=== PATIENT | female | born 1985 | race Caucasian/White ===

== ENCOUNTER 2020-08-15 10:23 | Emergency (ER) | payer BC ==
[2020-08-15] MEDS ORDERED: Sodium Chloride 0.9% 1000 ML 1,000 ML IV STA (10:50)
[2020-08-15] MEDS ORDERED: Zofran 4 MG/2 ML VIAL IV ONE (10:50)
[2020-08-15] MEDS ORDERED: MORPHINE SULFATE 4 MG INJ ONE (10:57)
[2020-08-15] MEDS ORDERED: Zofran 4 MG/2 ML VIAL ONE (10:57)
[2020-08-15] MEDS ORDERED: Sodium Chloride 0.9% 1000 ML 1,000 ML ONE (10:57)
[2020-08-15] MEDS: MORPHINE SULFATE 4 MG INJ IV ONE ×2 (10:58→13:31)
[2020-08-15 11:17] LABS: Appearance CLOUDY (CLEAR); Bacteria RARE /HPF (NEGATIVE); Bilirubin NEGATIVE (NEGATIVE); Blood LARGE Ery/ul (0-5); Epithelial Cells MODERATE /HPF (FEW); Glucose NEGATIVE (NEGATIVE); Ketones MODERATE (NEGATIVE); Leukocyte Esterase NEGATIVE (NEGATIVE); Mucus MANY /HPF (NEGATIVE); Nitrite NEGATIVE (NEGATIVE); Protein,Urine Dip 100 (Negative); RBC 26-50 /HPF (0-2); Specific Gravity 1.031 (1.005-1.025); Urobilinogen 4 mg/dL (0-1)
[2020-08-15 11:17] LABS: ALBUMIN 4.8 g/dL (3.5-5.0); ALKALINE PHOSPHATASE 81 U/L (38-126); ANION GAP 18.2 MEQ/L (5-15); Absolute Neutrophil Ct (ANC) 12.16 (1.4-6.9); BASOPHIL % 0.3 % (0.0-0.4); BLOOD UREA NITROGEN 25 mg/dL (7-17); Basophil (Absolute #) 0.04 (0-0.4); CHLORIDE 101 mmol/L (98-107); Calcium 10.1 mg/dL (8.4-10.2); Carbon Dioxide 23 mmol/L (22-30); Creatinine 1 0.72 mg/dL (0.52-1.04); EST GLOMERULAR FILTRATION RATE > 60.0 ML/MIN; Eosinophil % 0.3 % (0.00-5.0); Eosinophil (Absolute #) 0.04 (0-0.5); Glucose 107 mg/dL (74-106); Hematocrit 47.6 % (35-47); Hemoglobin 15.5 gm/dl (12.0-16.0); LIPASE 89 U/L (23-300); Lymphocyte (Absolute #) 2.03 (1.0-4.6); Lymphocytes % 13.3 % (24.0-44.0); Mean Cell Volume 92.6 fl (78-100); Mean Corpuscular Hemoglobin 30.2 pg (26-32); Mean Corpuscular Hgb Concent. 32.6 g/dl (32-36); Mean Platelet Volume 11.6 fl (7.5-11.0); Monocyte (Absolute #) 0.98 (0.0-1.3); Monocytes % 6.4 % (0.0-12.0); Neutrophil % 79.7 % (36.0-66.0); Platelet Count 309 K/mm3 (150-450); Potassium 3.3 mmol/L (3.5-5.1); Red Blood Count 5.14 M/mm3 (4.1-5.4); Red Cell Distribution Width 14.5 % (11.5-14.0); SGOT/AST 22 U/L (14-36); SGPT/ALT 14 U/L (0-35); SODIUM 139 mmol/L (137-145); Total Protein 8.6 g/dL (6.3-8.2); White Blood Count 15.3 K/mm3 (4.0-10.5)
--- NOTE | 2020-08-15 12:33 | XRAY ---
Indication: Abdomen pain 3 days. Multiple contiguous axial images obtained through the abdomen and pelvis using 80 cc Isovue 370 contrast. Comparison: None Lung bases are clear. Heart is not enlarged. Noncontrasted stomach and bowel loops appear nonobstructed. Normal appendix. No free fluid/air. Both kidneys enhance and excrete with 5 mm right mid renal cortical cyst. Uterus demonstrates 7 mm fundal subserosal fibroid. A few tiny hepatic calcified granulomas. Remaining liver, gallbladder, pancreas, spleen, adrenal glands, kidneys, ureters, bladder, uterus, and aorta appear unremarkable. No pathologic retroperitoneal lymphadenopathy. Osseous structures intact with minimal degenerative changes throughout the spine. No ventral or inguinal hernias. Impression: 1. Tiny right renal cyst, tiny uterine fibroid, and hepatic calcified granulomas. 2. Remaining CT abdomen/pelvis with contrast exam is negative.
[2020-08-15] MEDS ORDERED: Norflex 60 MG/2 ML IM ONE (12:54)
[2020-08-15] MEDS ORDERED: TORAdol 30 mg Injection IM ONE (12:54)
--- NOTE | 2020-08-15 13:16 | ERPHSYRPT ---
- History of Present Illness Time Seen by Provider: 08/15/20 10:44 Historian: patient Exam Limitations: no limitations Patient Subjective Stated Complaint: abd pain, vomiting Triage Nursing Assessment: pt to ED c/o vomiting and abd pain onset Friday. pt was tested for COVID yesterday and recieved 2 shots, for nausea and an abx. reports no emesis last night but began again this am. rates 9/10 pain in upper abd. no alleviating factors or aggrivating factors. decreased appetite and decreased PO intake reported. Physician History: 35 years old female with history of anxiety depression, hypothyroidism presented in the ER with chief complaint of generalized abdominal pain with more in the upper abdomen associated with multiple episodes of nonprojectile, nonbilious vomiting with no hematemesis for the last 4 days. Patient reports she was evaluated yesterday at urgent care and her vomiting improved and this morning she started vomiting again. She is feeling fatigued tired dehydrated and is unable to hold much down. She was also tested for COVID-19 which is pending. Denies any fever chills cough or shortness of breath. Denies any known sick contact with COVID-19. Patient report her pain is mild to moderate, comes and goes without any known significant aggravating or relieving factors. Timing/Duration: day(s) (4), gradual onset, worse Activities at Onset: rest Quality: dullness, sharpness Abdominal Pain Onset Location: generalized abdomen Pain Radiation: no radiation Severity of Pain-Max: moderate Severity of Pain-Current: moderate Modifying Factors: Worsens With: movement, palpation, vomiting Associated Symptoms: fatigue, nausea, vomiting, weakness, No fever/chills Previous symptoms: no prior history Allergies/Adverse Reactions: No Known Drug Allergies Allergy (Verified 08/15/20 10:50) Home Medications: Alprazolam 1 mg [Xanax 1 mg] 1 mg PO TID 08/07/13 [History] Loratadine 10 mg [Claritin 10 mg] 10 mg PO DAILY 08/07/13 [History] Citalopram Hydrobromide [Celexa] 10 mg PO DAILY 08/15/20 [History] Levothyroxine Sodium [Synthroid] 25 mcg PO DAILY 08/15/20 [History] Hx Tetanus, Diphtheria Vaccination/Date Given: Yes Hx Influenza Vaccination/Date Given: Yes Hx Pneumococcal Vaccination/Date Given: No Immunizations Up to Date: Yes Travel Risk - International Travel Have you traveled outside of the country in past 3 weeks: No - Coronavirus Screening Are you exhibiting any of the following symptoms?: Yes Symptoms: Fever, Vomiting/Diarrhea Close contact with a COVID-19 positive Pt in past 14-21 Days: No - Review of Systems Constitutional: Fatigue, Weakness Eyes: No Symptoms Ears, Nose, & Throat: No Symptoms Respiratory: No Symptoms Cardiac: No Symptoms Abdominal/Gastrointestinal: Abdominal Pain, Nausea, Vomiting Genitourinary Symptoms: No Symptoms Musculoskeletal: No Symptoms Skin: No Symptoms Neurological: No Symptoms Psychological: No Symptoms Endocrine: No Symptoms Hematologic/Lymphatic: No Symptoms Immunological/Allergic: No Symptoms - Past Medical History Pertinent Past Medical History: Yes Neurological History: No Pertinent History Cardiac History: No Pertinent History Respiratory History: No Pertinent History Endocrine Medical History: No Pertinent History Musculoskeletal History: Fractures Other Medical History: R ankle fx in 7th grade - Past Surgical History Past Surgical History: Yes Musculoskeletal: Orthopedic Surgery Female Surgical History: Section, Tubal Ligation Other Surgical History: PILONIDAL CYST - HYSTEROSCOPIC WITH MIRENA IMPLANT. uterine ablasion - Social History Smoking Status: Former smoker Exposure to second hand smoke: No Drug Use: none Patient Lives Alone: No - Female History Hx Now: (unkn) - Nursing Vital Signs Nursing Vital Signs: Initial Vital Signs Temperature 98.2 F 08/15/20 10:29 Pulse Rate 45 L 08/15/20 10:29 Respiratory Rate 16 08/15/20 10:29 Blood Pressure 143/63 08/15/20 10:29 O2 Sat by Pulse Oximetry 99 08/15/20 10:29 Pain Scale Pain Intensity 0 - Physical Exam General Appearance: no apparent distress, alert Eye Exam: eyes nml inspection Ears, Nose, Throat Exam: normal ENT inspection, pharynx normal Neck Exam: normal inspection, supple, full range of motion Respiratory Exam: normal breath sounds, lungs clear Cardiovascular Exam: normal heart sounds, bradycardia Gastrointestinal/Abdomen Exam: soft, normal bowel sounds, tenderness (generalized) Back Exam: normal inspection, normal range of motion Extremity Exam: normal inspection, normal range of motion, pelvis stable Neurologic Exam: alert, oriented x 3, cooperative, dietetic aide II-XII nml as tested Skin Exam: normal color SpO2 Interpretation: normal SpO2: 100 O2 Delivery: Room Air - Course EKG Interpreted by Me: RATE ([id number]), Sinus Ricardo, NORMAL AXIS, NORMAL INTERVALS, NORMAL QRS Ordered Tests: Active Orders 24 hr Category Date Time Status NPO (ED) STAT Care 08/15/20 10:50 Completed ABDOMEN AND PELVIS W CONTRAST [CT] Stat Exams 08/15/20 10:51 Completed CBC W DIFF Stat Lab 08/15/20 11:00 Completed CMP Stat Lab 08/15/20 11:00 Completed CULTURE,URINE Stat Lab 08/15/20 10:54 Received HCG,QUALITATIVE URINE Stat Lab 08/15/20 10:54 Completed LIPASE Stat Lab 08/15/20 11:00 Completed TROPONIN Q3H Lab 08/15/20 11:15 Completed UA W/RFX UR CULTURE Stat Lab 08/15/20 10:54 Completed Medication Summary Discontinued Medications Generic Name Dose Route Start Last Admin Trade Name Freq PRN Reason Stop Dose Admin Sodium Chloride 1,000 mls @ 999 mls/hr 08/15/20 10:50 08/15/20 11:59 Sodium Chloride 0.9% 1000 Ml IV 08/15/20 11:50 Infused .Q1H1M STA Infusion Sodium Chloride Confirm 08/15/20 10:57 Sodium Chloride 0.9% 1000 Ml Administered 08/15/20 10:58 Dose 1,000 mls @ ud .ROUTE .STK-MED ONE Ketorolac Tromethamine 30 mg 08/15/20 12:54 08/15/20 12:56 Toradol 30 Mg Injection IM 08/15/20 12:55 Not Given STAT ONE Morphine Sulfate 4 mg 08/15/20 10:50 08/15/20 13:31 Morphine Sulfate 4 Mg Inj IV 08/15/20 10:51 Not Given STAT ONE Morphine Sulfate Confirm 08/15/20 10:57 Morphine Sulfate 4 Mg Inj Administered 08/15/20 10:58 Dose 4 mg .ROUTE .STK-MED ONE Ondansetron HCl 4 mg 08/15/20 10:50 08/15/20 10:58 Zofran 4 Mg/2 Ml Vial IV 08/15/20 10:51 4 mg STAT ONE Administration Ondansetron HCl Confirm 08/15/20 10:57 Zofran 4 Mg/2 Ml Vial Administered 08/15/20 10:58 Dose 4 mg .ROUTE .STK-MED ONE Orphenadrine Citrate 60 mg 08/15/20 12:54 08/15/20 12:56 Norflex 60 Mg/2 Ml IM 08/15/20 12:55 Not Given STAT ONE Lab/Rad Data: Laboratory Result Diagrams 08/15/20 11:00 08/15/20 11:00 Laboratory Results 08/15/20 08/15/20 08/15/20 Range/Units 11:15 11:00 11:00 WBC 15.3 H (4.0-10.5) K/mm3 RBC 5.14 (4.1-5.4) M/mm3 Hgb 15.5 (12.0-16.0) gm/dl Hct 47.6 H (35-47) % MCV 92.6 (78-100) fl MCH 30.2 (26-32) pg MCHC 32.6 (32-36) g/dl RDW 14.5 H (11.5-14.0) % Plt Count 309 (150-450) K/mm3 MPV 11.6 H (7.5-11.0) fl Gran % 79.7 H (36.0-66.0) % Eos # (Auto) 0.04 (0-0.5) Absolute Lymphs (auto) 2.03 (1.0-4.6) Absolute Monos (auto) 0.98 (0.0-1.3) Lymphocytes % 13.3 L (24.0-44.0) % Monocytes % 6.4 (0.0-12.0) % Eosinophils % 0.3 (0.00-5.0) % Basophils % 0.3 (0.0-0.4) % Absolute Granulocytes 12.16 H (1.4-6.9) Basophils # 0.04 (0-0.4) Sodium 139 (137-145) mmol/L Potassium 3.3 L (3.5-5.1) mmol/L Chloride 101 (98-107) mmol/L Carbon Dioxide 23 (22-30) mmol/L Anion Gap 18.2 H (5-15) MEQ/L BUN 25 H (7-17) mg/dL Creatinine 0.72 (0.52-1.04) mg/dL Estimated GFR > 60.0 ML/MIN Glucose 107 H (74-106) mg/dL Calcium 10.1 (8.4-10.2) mg/dL Total Bilirubin 0.80 (0.2-1.3) mg/dL AST 22 (14-36) U/L ALT 14 (0-35) U/L Alkaline Phosphatase 81 (38-126) U/L Troponin I < 0.012 (0.000-0.034) ng/mL Serum Total Protein 8.6 H (6.3-8.2) g/dL Albumin 4.8 (3.5-5.0) g/dL Lipase 89 (23-300) U/L Urine Color (YELLOW) Urine Appearance (CLEAR) Urine pH (5-6) Ur Specific [place] (1.005-1.025) Urine Protein (Negative) Urine Ketones (NEGATIVE) Urine Blood (0-5) Adriel/ul Urine Nitrite (NEGATIVE) Urine Bilirubin (NEGATIVE) Urine Urobilinogen (0-1) mg/dL Ur Leukocyte Esterase (NEGATIVE) Urine WBC (Auto) (0-5) /HPF Urine RBC (Auto) (0-2) /HPF U Epithel Cells (Auto) (FEW) /HPF Urine Bacteria (Auto) (NEGATIVE) /HPF Urine Mucus (Auto) (NEGATIVE) /HPF Urine Culture Reflexed (NO) Urine Glucose (NEGATIVE) mg/dL Urine HCG, Qual (Negative) Slides for Path Review YES 08/15/20 08/15/20 Range/Units 10:54 10:54 WBC (4.0-10.5) K/mm3 RBC (4.1-5.4) M/mm3 Hgb (12.0-16.0) gm/dl Hct (35-47) % MCV (78-100) fl MCH (26-32) pg MCHC (32-36) g/dl RDW (11.5-14.0) % Plt Count (150-450) K/mm3 MPV (7.5-11.0) fl Gran % (36.0-66.0) % Eos # (Auto) (0-0.5) Absolute Lymphs (auto) (1.0-4.6) Absolute Monos (auto) (0.0-1.3) Lymphocytes % (24.0-44.0) % Monocytes % (0.0-12.0) % Eosinophils % (0.00-5.0) % Basophils % (0.0-0.4) % Absolute Granulocytes (1.4-6.9) Basophils # (0-0.4) Sodium (137-145) mmol/L Potassium (3.5-5.1) mmol/L Chloride (98-107) mmol/L Carbon Dioxide (22-30) mmol/L Anion Gap (5-15) MEQ/L BUN (7-17) mg/dL Creatinine (0.52-1.04) mg/dL Estimated GFR ML/MIN Glucose (74-106) mg/dL Calcium (8.4-10.2) mg/dL Total Bilirubin (0.2-1.3) mg/dL AST (14-36) U/L ALT (0-35) U/L Alkaline Phosphatase (38-126) U/L Troponin I (0.000-0.034) ng/mL Serum Total Protein (6.3-8.2) g/dL Albumin (3.5-5.0) g/dL Lipase (23-300) U/L Urine Color WILLIE (YELLOW) Urine Appearance CLOUDY (CLEAR) Urine pH 6.0 (5-6) Ur Specific [place] 1.031 (1.005-1.025) Urine Protein 100 (Negative) Urine Ketones MODERATE (NEGATIVE) Urine Blood LARGE (0-5) Adriel/ul Urine Nitrite NEGATIVE (NEGATIVE) Urine Bilirubin NEGATIVE (NEGATIVE) Urine Urobilinogen 4 (0-1) mg/dL Ur Leukocyte Esterase NEGATIVE (NEGATIVE) Urine WBC (Auto) 6-10 (0-5) /HPF Urine RBC (Auto) 26-50 (0-2) /HPF U Epithel Cells (Auto) MODERATE (FEW) /HPF Urine Bacteria (Auto) RARE (NEGATIVE) /HPF Urine Mucus (Auto) MANY (NEGATIVE) /HPF Urine Culture Reflexed YES (NO) Urine Glucose NEGATIVE (NEGATIVE) mg/dL Urine HCG, Qual NEGATIVE (Negative) Slides for Path Review - Progress Progress: improved, pain not gone completely, re-examined Progress Note: 08/15/20 13:33 She is given fluid bolus and Zofran, patient refused to have any kind of pain medications. Work-up showed white count of 15 and chemistries finding consistent with dehydration but no YARIEL. I have obtained CT abdomen pelvis with contrast which did not show any finding suggesting cause of her symptoms but has some other chronic findings. On reevaluation her abdominal exam is soft with minimal generalized tenderness but no rebound or guarding. Patient is feeling better although her pain is not completely resolved. She is offered pain meds again but she refused. I would give her Zofran to go home as I believe her symptoms could be secondary to some viral etiology and supportive care with increase hydration. Discussed signs symptoms of worsening needing return to ER which she seems understanding. Counseled pt/family regarding: lab results, diagnosis, need for follow-up, rad results - Departure Departure Disposition: Home Clinical Impression: Dehydration Nausea & vomiting Qualifiers: Vomiting type: unspecified Vomiting Intractability: non-intractable Qualified Code(s): R11.2 - Nausea with vomiting, unspecified Abdominal pain Qualifiers: Abdominal location: generalized Qualified Code(s): R10.84 - Generalized abdominal pain Condition: Stable Critical Care Time: No Referrals: ALTHEA DAVENPORT [Primary Care Provider] - (1-2 days for re evaluation ) Instructions: Nausea and Vomiting, Adult (DC) Additional Instructions: Take Zofran as needed for nausea and vomiting. Drink plenty of fluids to keep yourself hydrated. Follow-up with primary care physician for reevaluation in 1 to 2 days. Return to ER for worsening vomiting, decreased oral intake, intractable abdominal pain or if develop fever chills. Take Tylenol as needed but no ibuprofen. Prescriptions: Ondansetron ODT 4 MG [Zofran Odt 4 mg] 4 mg PO Q6H PRN PRN #10 tab.rapdis PRN Reason: Vomiting
[2020-08-15 13:54] LABS: Slide Review 1 YES
[2020-08-15 14:13] VITALS: BP 126/86; PULSE 49
[2020-08-15 16:51] VITALS: O2SAT 100
== END 2020-08-15 14:32 | disposition home or self-care (01) ==
LOC: ED 10:23
DX: R10.84 Generalized abdominal pain (principal); R11.2 Nausea with vomiting, unspecified; E86.0 Dehydration; R53.83 Other fatigue; F41.9 Anxiety disorder, unspecified; E03.9 Hypothyroidism, unspecified; Z79.899 Other long term (current) drug therapy
CPT/HCPCS: 36000; 36415; 74177; 80053; 81001; 83690; 84484; 84703; 85025; 87077; 87086; 87186; 96360; 96374; 99284; J2270; J2405

== ENCOUNTER 2021-02-15 10:52 | Emergency (ER) | payer BC, OTHER ==
[2021-02-15 11:19] LABS: Absolute Neutrophil Ct (ANC) 5.29 (1.4-6.9); BASOPHIL % 0.5 % (0.0-0.4); Basophil (Absolute #) 0.04 (0-0.4); Eosinophil % 0.8 % (0.00-5.0); Eosinophil (Absolute #) 0.07 (0-0.5); Hematocrit 43.8 % (35-47); Mean Cell Volume 95.2 fl (78-100); Mean Corpuscular Hemoglobin 30.4 pg (26-32); Mean Platelet Volume 10.3 fl (7.5-11.0); Monocyte (Absolute #) 0.73 (0.0-1.3); Monocytes % 8.5 % (0.0-12.0); Neutrophil % 61.2 % (36.0-66.0); Platelet Count 298 K/mm3 (150-450); White Blood Count 8.6 K/mm3 (4.0-10.5)
[2021-02-15 11:29] LABS: ALKALINE PHOSPHATASE 45 U/L (38-126); ANION GAP 10.8 MEQ/L (5-15); BLOOD UREA NITROGEN 14 mg/dL (7-17); CHLORIDE 105 mmol/L (98-107); Calcium 9.5 mg/dL (8.4-10.2); Carbon Dioxide 27 mmol/L (22-30); Creatinine 1 0.83 mg/dL (0.52-1.04); EST GLOMERULAR FILTRATION RATE > 60.0 ML/MIN; Glucose 86 mg/dL (74-106); Potassium 4.5 mmol/L (3.5-5.1); SGOT/AST 20 U/L (14-36); SGPT/ALT 14 U/L (0-35); SODIUM 138 mmol/L (137-145); Total Protein 6.8 g/dL (6.3-8.2)
--- NOTE | 2021-02-15 12:22 | ERPHSYRPT ---
- History of Present Illness Time Seen by Provider: 02/15/21 11:05 Source: patient Exam Limitations: no limitations Patient Subjective Stated Complaint: Pt states "I was at work on friday and a kay of boxes fell and hit my left hip. It is really bruised and it hurts when I stand for a long time." Triage Nursing Assessment: Pt presented alert and oriented X 3, skin pwd Pt ambulates with an upright steady gait, able to speak in clear full sentences pt in no apaprent respriatory distress. Physician History: Patient is a 35-year-old white female who works at [employer] when she was working on Friday a large number of boxes fell striking her on the left side of her body and particularly in the left flank area. She continued to work that day but yesterday had increased pain and was sent home from work. Today she was sent by her employer in for evaluation. Occurred: days ago (4) Reason for Fall: fell from standing pos (She was hit in the left side by falling boxes knocking her to the ground) Injuries/Pain Location: abdomen Loss of Consciousness: no loss of consciousness Quality: throbbing Severity of Pain-Max: moderate Severity of Pain-Current: moderate Modifying Factors: Improves With: movement Associated Symptoms (Fall): abdominal pain, extremity injury (Left hip) Allergies/Adverse Reactions: No Known Drug Allergies Allergy (Verified 08/15/20 10:50) Home Medications: ALPRAZolam 1 MG [Xanax 1 mg] 1 mg PO TID 08/07/13 [History] Loratadine 10 mg [Claritin 10 mg] 10 mg PO DAILY 08/07/13 [History] Citalopram Hydrobromide [Celexa] 10 mg PO DAILY 08/15/20 [History] Levothyroxine Sodium [Synthroid] 25 mcg PO DAILY 08/15/20 [History] Hx Tetanus, Diphtheria Vaccination/Date Given: No Hx Influenza Vaccination/Date Given: Yes Hx Pneumococcal Vaccination/Date Given: No Immunizations Up to Date: Yes Travel Risk - International Travel Have you traveled outside of the country in past 3 weeks: No - Coronavirus Screening Are you exhibiting any of the following symptoms?: No Close contact with a COVID-19 positive Pt in past 14-21 Days: No - Vaccine Status Have you recieved a Covid-19 vaccination: Yes 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[employer] - Vaccination Dates Date of 2cond Vaccination (if applicable): 12/2020 - Review of Systems Constitutional: No Fever, No Chills Eyes: No Symptoms Ears, Nose, & Throat: No Symptoms Respiratory: No Cough, No Dyspnea Cardiac: No Chest Pain, No Edema, No Syncope Abdominal/Gastrointestinal: No Abdominal Pain, No Nausea, No Vomiting, No Diarrhea Genitourinary Symptoms: No Dysuria Musculoskeletal: No Back Pain, No Neck Pain Skin: No Rash Neurological: No Dizziness, No Focal Weakness, No Sensory Changes Psychological: No Symptoms Endocrine: No Symptoms All Other Systems: Reviewed and Negative - Past Medical History Pertinent Past Medical History: Yes Neurological History: No Pertinent History Cardiac History: No Pertinent History Respiratory History: No Pertinent History Endocrine Medical History: Hypothyroidism Musculoskeletal History: No Pertinent History Other Medical History: KIDNEY INFECTION, PLANTAR FASCIITIS IN THE R FOOT PRESENTLY, NOW FEELING BETTER SINCE DR. DAILEY GAVE HER A SHOT. - Past Surgical History Past Surgical History: Yes Musculoskeletal: Orthopedic Surgery Female Surgical History: Section, Tubal Ligation Other Surgical History: PILONIDAL CYST - HYSTEROSCOPIC WITH MIRENA IMPLANT. uterine ablasion - Social History Smoking Status: Former smoker Exposure to second hand smoke: No Drug Use: none Patient Lives Alone: No - Female History Hx Last Menstrual Period: ablasion Hx Now: No - Nursing Vital Signs Nursing Vital Signs: Initial Vital Signs Temperature 98.3 F 02/15/21 10:57 Pulse Rate 71 02/15/21 10:57 Respiratory Rate 20 02/15/21 10:57 Blood Pressure 114/61 02/15/21 10:57 O2 Sat by Pulse Oximetry 99 02/15/21 10:57 Pain Scale Pain Intensity 3 - Jeovany Coma Score Best Eye Response (Alba): (4) open spontaneously Best Verbal Response (Jeovany): (5) oriented Best Motor Response (Jeovany): (6) obeys commands Jeovany Total: 15 - Physical Exam General Appearance: mild distress, alert Head Injury: no evidence of injury Eye Exam: PERRL/EOMI ENT Exam: airway nml Neck Exam: normal inspection, No tenderness Respiratory/Chest Exam: normal breath sounds, No chest tenderness, No respiratory distress Cardiovascular Exam: normal heart sounds, regular rate/rhythm Gastrointestinal Exam: soft, other (Large area of ecchymoses in the left flank), No tenderness, No distention, No guarding, No ecchymosis Back Exam: normal inspection, No vertebral tenderness Extremity Exam: normal inspection, normal range of motion, pelvis stable, hip tenderness (Left hip), No deformities Peripheral Pulses: carotid (R): 2+, carotid (L): 2+ Neurologic Exam: alert, oriented x 3, cooperative, sensation nml, No motor deficits Skin Exam: normal color, warm, dry, ecchymosis (Left flank) SpO2 Interpretation: normal SpO2: 99 O2 Delivery: Room Air - Course Nursing assessment & vital signs reviewed: Yes - CT Exams Abdomen/Pelvis CT Interpretation: Other (CT scan was read as a new 3.7 cm left ovarian cyst a stable tiny right renal cyst and old granulomatous disease the remainder of the exam including the bony pelvis and left hip negative) Ordered Tests: Active Orders 24 hr Category Date Time Status ABDOMEN AND PELVIS W CONTRAST [CT] Stat Exams 02/15/21 11:00 Completed CBC W DIFF Stat Lab 02/15/21 11:10 Completed CMP Stat Lab 02/15/21 11:10 Completed HCG,QUALITATIVE URINE Stat Lab 02/15/21 11:10 Completed UA W/RFX UR CULTURE Stat Lab 02/15/21 11:10 Ordered Lab/Rad Data: Laboratory Result Diagrams 02/15/21 11:10 02/15/21 11:10 Laboratory Results 02/15/21 02/15/21 02/15/21 Range/Units 11:10 11:10 11:10 WBC 8.6 (4.0-10.5) K/mm3 RBC 4.60 (4.1-5.4) M/mm3 Hgb 14.0 (12.0-16.0) gm/dl Hct 43.8 (35-47) % MCV 95.2 (78-100) fl MCH 30.4 (26-32) pg MCHC 32.0 (32-36) g/dl RDW 15.0 H (11.5-14.0) % Plt Count 298 (150-450) K/mm3 MPV 10.3 (7.5-11.0) fl Gran % 61.2 (36.0-66.0) % Eos # (Auto) 0.07 (0-0.5) Absolute Lymphs (auto) 2.50 (1.0-4.6) Absolute Monos (auto) 0.73 (0.0-1.3) Lymphocytes % 29.0 (24.0-44.0) % Monocytes % 8.5 (0.0-12.0) % Eosinophils % 0.8 (0.00-5.0) % Basophils % 0.5 (0.0-0.4) % Absolute Granulocytes 5.29 (1.4-6.9) Basophils # 0.04 (0-0.4) Sodium 138 (137-145) mmol/L Potassium 4.5 (3.5-5.1) mmol/L Chloride 105 (98-107) mmol/L Carbon Dioxide 27 (22-30) mmol/L Anion Gap 10.8 (5-15) MEQ/L BUN 14 (7-17) mg/dL Creatinine 0.83 (0.52-1.04) mg/dL Estimated GFR > 60.0 ML/MIN Glucose 86 (74-106) mg/dL Calcium 9.5 (8.4-10.2) mg/dL Total Bilirubin 0.40 (0.2-1.3) mg/dL AST 20 (14-36) U/L ALT 14 (0-35) U/L Alkaline Phosphatase 45 (38-126) U/L Serum Total Protein 6.8 (6.3-8.2) g/dL Albumin 4.0 (3.5-5.0) g/dL Urine HCG, Qual NEGATIVE (Negative) - Progress Progress: improved - Departure Departure Disposition: Home Clinical Impression: Contusion of flank and back Condition: Stable Critical Care Time: No Referrals: ALTHEA DAVENPORT [Primary Care Provider] - Instructions: Contusion (DC) Prescriptions: Hydrocodone/Acetaminophen [Hydrocodone-Acetamin 5-325 mg] 1 tab PO Q6HPRN PRN 3 Days #12 tablet MDD 4 PRN Reason: Pain
--- NOTE | 2021-02-15 12:23 | XRAY ---
Indication: Left flank trauma 3 days ago. Multiple contiguous axial images obtained through the abdomen and pelvis using 80 cc Isovue 370 contrast. Comparison: August 15, 2020. Lung bases are again clear of infiltrate, effusion, or pneumothorax. Heart not enlarged. Noncontrasted stomach and bowel loops nonobstructed. There is now mild scattered colonic fecal debris greatest in the ascending and transverse colon. New 3.7 cm left ovary cyst. No free fluid/air. Stable 5 mm right mid renal cortical cyst and tiny hepatic/splenic calcified granulomas. Remaining liver, gallbladder, pancreas, spleen, adrenal glands, kidneys, ureters, bladder, uterus, and aorta are unremarkable. No pathologic retroperitoneal lymphadenopathy. Osseous structures intact Impression: 1. New 3.7 cm left ovary cyst. 2. Stable tiny right renal cyst and old granulomatous disease. 3. Remaining CT abdomen/pelvis with contrast exam is negative.
[2021-02-15 12:51] LABS: Appearance SLIGHTLY CLOUDY (CLEAR); Bacteria RARE /HPF (NEGATIVE); Bilirubin NEGATIVE (NEGATIVE); Blood SMALL Ery/ul (0-5); Epithelial Cells RARE /HPF (FEW); Glucose NEGATIVE (NEGATIVE); Ketones NEGATIVE (NEGATIVE); Leukocyte Esterase NEGATIVE (NEGATIVE); Mucus SLIGHT /HPF (NEGATIVE); Nitrite NEGATIVE (NEGATIVE); Protein,Urine Dip NEGATIVE (Negative); Specific Gravity 1.019 (1.005-1.025); Urobilinogen 2 mg/dL (0-1)
[2021-02-15 12:55] VITALS: BP 108/64; PULSE 52; O2SAT 97
== END 2021-02-15 12:56 | disposition home or self-care (01) ==
LOC: ED 10:52
DX: S30.1XXA Contusion of abdominal wall, initial encounter (principal); S30.0XXA Contusion of lower back and pelvis, initial encounter; M25.552 Pain in left hip; W22.8XXA Striking against or struck by other objects, initial encounter; Y93.89 Activity, other specified; Y92.89 Other specified places as the place of occurrence of the external cause; Y99.0 Civilian activity done for income or pay
CPT/HCPCS: 36415; 74177; 80053; 81001; 84703; 85025; 99284

== ENCOUNTER 2022-02-19 17:41 | Emergency (ER) | payer BC ==
--- NOTE | 2022-02-19 18:13 | ERPHSYRPT ---
- History of Present Illness Time Seen by Provider: 02/19/22 18:00 Historian: patient Exam Limitations: no limitations Patient Subjective Stated Complaint: Chest pain Triage Nursing Assessment: Patient brought back to ED per w/c and transferred self to bed. Patient A+O X.3 Patient's skin pink ,warm and dry. Patient complains of chest pain that started around 1000 this am. Patient complains of constant pain 9/10. Patient also complains of nausea and vomiting. Physician History: Patient 36-year-old female presents to our ED for evaluation of substernal chest pain that started approximately 10 AM. Chest pain associate with nausea and vomiting. No history of the same. Pain is localized. No radiation. Symptoms are mild to moderate in intensity. No specific worsening improving factors. Patient voices no other complaint or concerns at this time. Portions of this note were created with voice recognition technology. There may be grammatical, spelling, punctuation or sound alike errors Timing/Duration: today Activities at Onset: none Quality: aching Location: substernal Chest Pain Radiation: no radiation Severity of Pain-Max: moderate Severity of Pain-Current: mild Modifying Factors: Improves With: nothing Associated Symptoms: nausea, vomiting Prior Chest Pain/Cardiac Workup: no prior chest pain Nitro Today/Relief: no nitro taken today Aspirin Treatment Today: no aspirin today Allergies/Adverse Reactions: No Known Drug Allergies Allergy (Verified 02/19/22 17:52) Home Medications: ALPRAZolam 1 MG [Xanax 1 mg] 1 mg PO TID 08/07/13 [History] Citalopram Hydrobromide [Celexa] 10 mg PO DAILY 08/15/20 [History] Levothyroxine Sodium [Synthroid] 25 mcg PO DAILY 08/15/20 [History] Hx Tetanus, Diphtheria Vaccination/Date Given: No Hx Influenza Vaccination/Date Given: Yes Hx Pneumococcal Vaccination/Date Given: No Immunizations Up to Date: Yes Travel Risk - International Travel Have you traveled outside of the country in past 3 weeks: No - Coronavirus Screening Are you exhibiting any of the following symptoms?: No Close contact with a COVID-19 positive Pt in past 14-21 Days: No - Vaccine Status Have you recieved a Covid-19 vaccination: Yes [employer]: [employer] - Vaccination Dates Date of 2cond Vaccination (if applicable): 12/2020 - Review of Systems Constitutional: No Symptoms, No Fever, No Chills Eyes: No Symptoms Ears, Nose, & Throat: No Symptoms Respiratory: No Symptoms, No Cough, No Dyspnea Cardiac: No Symptoms, No Chest Pain, No Edema, No Syncope Abdominal/Gastrointestinal: No Symptoms, No Abdominal Pain, No Nausea, No V omiting, No Diarrhea Genitourinary Symptoms: No Symptoms, No Dysuria Musculoskeletal: No Symptoms, No Back Pain, No Neck Pain Skin: No Symptoms, No Rash Neurological: No Symptoms, No Dizziness, No Focal Weakness, No Sensory Changes Psychological: No Symptoms Endocrine: No Symptoms Hematologic/Lymphatic: No Symptoms Immunological/Allergic: No Symptoms All Other Systems: Reviewed and Negative - Past Medical History Pertinent Past Medical History: Yes Neurological History: No Pertinent History Cardiac History: No Pertinent History Respiratory History: No Pertinent History Endocrine Medical History: Hypothyroidism Musculoskeletal History: Fractures, Other Other Medical History: HX FX RIGHT ANKLE REQUIRING ORIF A TEENAGER. - Past Surgical History Past Surgical History: Yes Musculoskeletal: Orthopedic Surgery Female Surgical History: Section, Tubal Ligation Other Surgical History: PILONIDAL CYST - HYSTEROSCOPIC WITH MIRENA IMPLANT. uterine ablasion. left shoulder rotator cuff repair - Social History Smoking Status: Former smoker Exposure to second hand smoke: No Drug Use: marijuana Patient Lives Alone: No - Female History Hx Last Menstrual Period: ablation Hx Now: No - Nursing Vital Signs Nursing Vital Signs: Initial Vital Signs Temperature 97.6 F 02/19/22 17:56 Pulse Rate 69 02/19/22 17:56 Respiratory Rate 18 02/19/22 17:56 Blood Pressure 138/82 02/19/22 17:56 O2 Sat by Pulse Oximetry 100 02/19/22 17:56 Pain Scale Pain Intensity 0 - Physical Exam General Appearance: no apparent distress, alert Eye Exam: PERRL/EOMI, eyes nml inspection Ears, Nose, Throat Exam: normal ENT inspection, TMs normal, pharynx normal, moist mucous membranes Neck Exam: normal inspection, non-tender, supple, full range of motion Respiratory Exam: normal breath sounds, lungs clear, airway intact, No respiratory distress Cardiovascular Exam: regular rate/rhythm, normal heart sounds, normal peripheral pulses Gastrointestinal/Abdomen Exam: soft, No tenderness, No mass Back Exam: normal inspection, No CVA tenderness, No vertebral tenderness Extremity Exam: normal inspection, normal range of motion Neurologic Exam: alert, oriented x 3, cooperative, normal mood/affect, sensation nml, No motor deficits Skin Exam: normal color, warm, dry Lymphatic Exam: No adenopathy SpO2 Interpretation: normal SpO2: 100 O2 Delivery: Room Air - Course Nursing assessment & vital signs reviewed: Yes EKG Interpreted by Me: RATE (69), Sinus Rhythm, NORMAL AXIS, NORMAL INTERVALS - Radiology Exams Chest X-ray Interpretation: Interpreted by me (Right lung nodule mild bibasilar atelectasis. Normal cardiac silhouette. Intact bony thorax) - CT Exams Abdomen/Pelvis CT Interpretation: Tele-radiologist Report (Compared to 02/15/2021 new small hiatal hernia. Normal appendix. Remaining abdomen pelvis negative.) Ordered Tests: Active Orders 24 hr Category Date Time Status Teller STAT Care 02/19/22 18:12 Completed EKG-ER Only STAT Care 02/19/22 18:09 Completed IV Insertion STAT Care 02/19/22 18:09 Completed Pulse Oximetry (ED) STAT Care 02/19/22 18:09 Completed ABDOMEN AND PELVIS W/0 CONTRAS [CT] Stat Exams 02/19/22 20:13 Taken CHEST 1 VIEW (PORTABLE) Stat Exams 02/19/22 18:11 Taken CBC W DIFF Stat Lab 02/19/22 17:00 Completed CMP Stat Lab 02/19/22 17:00 Completed CULTURE,URINE Stat Lab 02/20/22 00:50 Received D-DIMER QUANTITATIVE Stat Lab 02/19/22 17:00 Completed LIPASE Stat Lab 02/19/22 22:26 Completed NT PRO BNP Stat Lab 02/19/22 17:00 Completed TROPONIN Q4H Lab 02/19/22 17:00 Completed TROPONIN Q4H Lab 02/19/22 22:15 Completed UA W/RFX CULTURE Stat Lab 02/20/22 00:50 Completed Medication Summary Discontinued Medications Generic Name Dose Route Start Last Admin Trade Name Freq PRN Reason Stop Dose Admin Ceftriaxone Sodium/Dextrose 1 g in 50 mls @ 100 mls/hr 02/20/22 01:26 02/20/22 01:50 Rocephin 1 Gm-D5w 50 Ml Bag IV 02/20/22 01:55 100 mls/hr STAT STA 100 mls/hr Administration Ceftriaxone Sodium/Dextrose Confirm 02/20/22 01:47 Rocephin 1 Gm-D5w 50 Ml Bag Administered 02/20/22 01:48 Dose 1 g in 50 mls @ ud IV .STK-MED ONE Ketorolac Tromethamine 30 mg 02/19/22 20:13 02/19/22 20:46 Ketorolac Tromethamine 30 Mg/Ml Inj IM 02/19/22 20:14 30 mg STAT ONE Administration Ketorolac Tromethamine Confirm 02/19/22 20:43 Ketorolac Tromethamine 30 Mg/Ml Inj Administered 02/19/22 20:44 Dose 30 mg .ROUTE .STK-MED ONE Ondansetron HCl 4 mg 02/19/22 19:44 02/19/22 20:02 Ondansetron Hcl 4 Mg/2 Ml Vial IV 02/19/22 19:45 4 mg STAT ONE Administration Ondansetron HCl Confirm 02/19/22 20:00 Ondansetron Hcl 4 Mg/2 Ml Vial Administered 02/19/22 20:01 Dose 4 mg .ROUTE .STK-MED ONE Pantoprazole Sodium 40 mg 02/19/22 22:26 02/19/22 22:35 Pantoprazole 40 Mg Vial IV 02/19/22 22:27 40 mg STAT ONE Administration Pantoprazole Sodium Confirm 02/19/22 22:33 Pantoprazole 40 Mg Vial Administered 02/19/22 22:34 Dose 40 mg IV .STK-MED ONE Lab/Rad Data: Laboratory Result Diagrams 02/19/22 17:00 02/19/22 17:00 Laboratory Results 02/20/22 02/19/22 02/19/22 Range/Units 00:50 22:26 22:15 WBC (4.0-10.5) x10^3/uL RBC (4.1-5.4) x10^6/uL Hgb (12.0-16.0) g/dL Hct (35-47) % MCV (78-100) fL MCH (26-32) pg MCHC (32-36) g/dL RDW (11.5-14.0) % Plt Count (150-450) x10^3/uL MPV (7.5-11.0) fL Gran % (36.0-66.0) % Immature Gran % (Auto) (0.00-0.4) % Nucleat RBC Rel Count (0.00-0.1) % Eos # (Auto) (0-0.5) x10^3/uL Immature Gran # (Auto) (0.00-0.03) x10^3u/L Absolute Lymphs (auto) (1.0-4.6) x10^3/uL Absolute Monos (auto) (0.0-1.3) x10^3/uL Absolute Nucleated RBC (0.00-0.01) x10^3u/L Lymphocytes % (24.0-44.0) % Monocytes % (0.0-12.0) % Eosinophils % (0.00-5.0) % Basophils % (0.0-0.4) % Absolute Granulocytes (1.4-6.9) x10^3/uL Basophils # (0-0.4) x10^3/uL D-Dimer (0.0-0.50) mg/L Sodium (137-145) mmol/L Potassium (3.5-5.1) mmol/L Chloride (98-107) mmol/L Carbon Dioxide (22-30) mmol/L Anion Gap (5-15) MEQ/L BUN (7-17) mg/dL Creatinine (0.52-1.04) mg/dL Estimated GFR ML/MIN Glucose (74-106) mg/dL Calcium (8.4-10.2) mg/dL Total Bilirubin (0.2-1.3) mg/dL AST (14-36) U/L ALT (0-35) U/L Alkaline Phosphatase (38-126) U/L Troponin I < 0.012 (0.000-0.034) ng/mL NT-Pro-B Natriuret Pep (0-450) pg/mL Serum Total Protein (6.3-8.2) g/dL Albumin (3.5-5.0) g/dL Lipase 73 (23-300) U/L Urinalys Dipstick Clnc MAIN LAB Urine Color YELLOW (YELLOW) Urine Appearance CLEAR (CLEAR) Urine pH 8.5 (5-6) Ur Specific [place] 1.020 (1.005-1.025) POC Urine Protein Conf 30 (Negative) Urine Ketones TRACE (NEGATIVE) Urine Nitrite NEGATIVE (NEGATIVE) Urine Bilirubin NEGATIVE (NEGATIVE) Urine Urobilinogen 0.2 (0-1) mg/dL Urine Leukocytes NEGATIVE (NEGATIVE) Urine WBC (Auto) 11-15 (0-5) /HPF Urine RBC (Auto) 16-25 (0-2) /HPF U Epithel Cells (Auto) NONE (FEW) /HPF Urine Bacteria (Auto) RARE (NEGATIVE) /HPF Urine RBC SMALL (0-5) Adriel/ul Urine Mucus (Auto) SLIGHT (NEGATIVE) /HPF Ur Culture Indicated? YES Urine Glucose NEGATIVE (NEGATIVE) mg/dL 02/19/22 02/19/22 02/19/22 Range/Units 17:00 17:00 17:00 WBC (4.0-10.5) x10^3/uL RBC (4.1-5.4) x10^6/uL Hgb (12.0-16.0) g/dL Hct (35-47) % MCV (78-100) fL MCH (26-32) pg MCHC (32-36) g/dL RDW (11.5-14.0) % Plt Count (150-450) x10^3/uL MPV (7.5-11.0) fL Gran % (36.0-66.0) % Immature Gran % (Auto) (0.00-0.4) % Nucleat RBC Rel Count (0.00-0.1) % Eos # (Auto) (0-0.5) x10^3/uL Immature Gran # (Auto) (0.00-0.03) x10^3u/L Absolute Lymphs (auto) (1.0-4.6) x10^3/uL Absolute Monos (auto) (0.0-1.3) x10^3/uL Absolute Nucleated RBC (0.00-0.01) x10^3u/L Lymphocytes % (24.0-44.0) % Monocytes % (0.0-12.0) % Eosinophils % (0.00-5.0) % Basophils % (0.0-0.4) % Absolute Granulocytes (1.4-6.9) x10^3/uL Basophils # (0-0.4) x10^3/uL D-Dimer 0.44 (0.0-0.50) mg/L Sodium 137 (137-145) mmol/L Potassium 3.4 L (3.5-5.1) mmol/L Chloride 103 (98-107) mmol/L Carbon Dioxide 23 (22-30) mmol/L Anion Gap 14.7 (5-15) MEQ/L BUN 15 (7-17) mg/dL Creatinine 0.69 (0.52-1.04) mg/dL Estimated GFR > 60.0 ML/MIN Glucose 118 H (74-106) mg/dL Calcium 9.5 (8.4-10.2) mg/dL Total Bilirubin 0.40 (0.2-1.3) mg/dL AST 19 (14-36) U/L ALT 14 (0-35) U/L Alkaline Phosphatase 96 (38-126) U/L Troponin I < 0.012 (0.000-0.034) ng/mL NT-Pro-B Natriuret Pep 66.5 (0-450) pg/mL Serum Total Protein 7.7 (6.3-8.2) g/dL Albumin 4.6 (3.5-5.0) g/dL Lipase (23-300) U/L Urinalys Dipstick Clnc Urine Color (YELLOW) Urine Appearance (CLEAR) Urine pH (5-6) Ur Specific [place] (1.005-1.025) POC Urine Protein Conf (Negative) Urine Ketones (NEGATIVE) Urine Nitrite (NEGATIVE) Urine Bilirubin (NEGATIVE) Urine Urobilinogen (0-1) mg/dL Urine Leukocytes (NEGATIVE) Urine WBC (Auto) (0-5) /HPF Urine RBC (Auto) (0-2) /HPF U Epithel Cells (Auto) (FEW) /HPF Urine Bacteria (Auto) (NEGATIVE) /HPF Urine RBC (0-5) Adriel/ul Urine Mucus (Auto) (NEGATIVE) /HPF Ur Culture Indicated? Urine Glucose (NEGATIVE) mg/dL 02/19/22 Range/Units 17:00 WBC 9.4 (4.0-10.5) x10^3/uL RBC 4.79 (4.1-5.4) x10^6/uL Hgb 14.5 (12.0-16.0) g/dL Hct 43.1 (35-47) % MCV 90.0 (78-100) fL MCH 30.3 (26-32) pg MCHC 33.6 (32-36) g/dL RDW 12.9 (11.5-14.0) % Plt Count 324 (150-450) x10^3/uL MPV 10.4 (7.5-11.0) fL Gran % 70.2 H (36.0-66.0) % Immature Gran % (Auto) 0.3 (0.00-0.4) % Nucleat RBC Rel Count 0.0 (0.00-0.1) % Eos # (Auto) 0.06 (0-0.5) x10^3/uL Immature Gran # (Auto) 0.03 (0.00-0.03) x10^3u/L Absolute Lymphs (auto) 2.09 (1.0-4.6) x10^3/uL Absolute Monos (auto) 0.59 (0.0-1.3) x10^3/uL Absolute Nucleated RBC 0.00 (0.00-0.01) x10^3u/L Lymphocytes % 22.3 L (24.0-44.0) % Monocytes % 6.3 (0.0-12.0) % Eosinophils % 0.6 (0.00-5.0) % Basophils % 0.3 (0.0-0.4) % Absolute Granulocytes 6.59 (1.4-6.9) x10^3/uL Basophils # 0.03 (0-0.4) x10^3/uL D-Dimer (0.0-0.50) mg/L Sodium (137-145) mmol/L Potassium (3.5-5.1) mmol/L Chloride (98-107) mmol/L Carbon Dioxide (22-30) mmol/L Anion Gap (5-15) MEQ/L BUN (7-17) mg/dL Creatinine (0.52-1.04) mg/dL Estimated GFR ML/MIN Glucose (74-106) mg/dL Calcium (8.4-10.2) mg/dL Total Bilirubin (0.2-1.3) mg/dL AST (14-36) U/L ALT (0-35) U/L Alkaline Phosphatase (38-126) U/L Troponin I (0.000-0.034) ng/mL NT-Pro-B Natriuret Pep (0-450) pg/mL Serum Total Protein (6.3-8.2) g/dL Albumin (3.5-5.0) g/dL Lipase (23-300) U/L Urinalys Dipstick Clnc Urine Color (YELLOW) Urine Appearance (CLEAR) Urine pH (5-6) Ur Specific [place] (1.005-1.025) POC Urine Protein Conf (Negative) Urine Ketones (NEGATIVE) Urine Nitrite (NEGATIVE) Urine Bilirubin (NEGATIVE) Urine Urobilinogen (0-1) mg/dL Urine Leukocytes (NEGATIVE) Urine WBC (Auto) (0-5) /HPF Urine RBC (Auto) (0-2) /HPF U Epithel Cells (Auto) (FEW) /HPF Urine Bacteria (Auto) (NEGATIVE) /HPF Urine RBC (0-5) Adriel/ul Urine Mucus (Auto) (NEGATIVE) /HPF Ur Culture Indicated? Urine Glucose (NEGATIVE) mg/dL - Progress Progress: improved Air Movement: good Progress Note: Patient reassessed. Patient tolerated p.o. Troponin negative x2. CT abdomen pelvis negative. Work-up reveals urinary tract infection. Patient received a dose of Rocephin in our ED. A prescription for Macrobid was forwarded to patient's pharmacy. Patient also received a prescription for Zofran and Protonix. Patient states she does not feel 100%. We advised admission. Patient declined. Patient that she feels well enough to go home which she prefers to try. at bedside. He states he will keep an eye on her return if need be. He states he lives 5 miles away. Will discharge at this time. Patient agrees to follow-up with her primary care doctor within 48 hours for reevaluation. Portions of this note were created with voice recognition technology. There may be grammatical, spelling, punctuation or sound alike errors 02/20/22 02:37 Blood Culture(s) Obtained: No Antibiotics given: No Counseled pt/family regarding: lab results, diagnosis, need for follow-up, rad results - Departure Departure Disposition: Home Clinical Impression: Nausea & vomiting, Hiatal hernia, Chest pain, Urinary tract infection Condition: Stable Critical Care Time: No Referrals: ALTHEA DAVENPORT [Primary Care Provider] - Follow up/PCP as directed Instructions: Nausea and Vomiting, Adult ED Prescriptions: Ondansetron ODT 4 MG [Zofran Odt 4 mg] 4 mg PO Q6H PRN PRN #10 tablet PRN Reason: Vomiting Nitrofurantoin Macro 100 mg [Macrobid 100MG Capsule] 100 mg PO BID 14 Days #7 cap PANTOPRAZOLE 40 mg Tablet [Protonix 40MG Tablet] 40 mg PO DAILY 14 Days #14 tab
[2022-02-19 18:19] LABS: Absolute Neutrophil Ct (ANC) 6.59 x10^3/uL (1.4-6.9); Basophil (Absolute #) 0.03 x10^3/uL (0-0.4); Eosinophil % 0.6 % (0.00-5.0); Eosinophil (Absolute #) 0.06 x10^3/uL (0-0.5); Hematocrit 43.1 % (35-47); Hemoglobin 14.5 g/dL (12.0-16.0); Lymphocyte (Absolute #) 2.09 x10^3/uL (1.0-4.6); Lymphocytes % 22.3 % (24.0-44.0); Mean Corpuscular Hemoglobin 30.3 pg (26-32); Mean Corpuscular Hgb Concent. 33.6 g/dL (32-36); Mean Platelet Volume 10.4 fL (7.5-11.0); Monocyte (Absolute #) 0.59 x10^3/uL (0.0-1.3); Monocytes % 6.3 % (0.0-12.0); Neutrophil % 70.2 % (36.0-66.0); Platelet Count 324 x10^3/uL (150-450); Red Blood Count 4.79 x10^6/uL (4.1-5.4); Red Cell Distribution Width 12.9 % (11.5-14.0); White Blood Count 9.4 x10^3/uL (4.0-10.5)
[2022-02-19 18:50] LABS: ALBUMIN 4.6 g/dL (3.5-5.0); ALKALINE PHOSPHATASE 96 U/L (38-126); ANION GAP 14.7 MEQ/L (5-15); BLOOD UREA NITROGEN 15 mg/dL (7-17); CHLORIDE 103 mmol/L (98-107); Calcium 9.5 mg/dL (8.4-10.2); Carbon Dioxide 23 mmol/L (22-30); Creatinine 1 0.69 mg/dL (0.52-1.04); EST GLOMERULAR FILTRATION RATE > 60.0 ML/MIN; Glucose 118 mg/dL (74-106); NT PRO BNP 66.5 pg/mL (0-450); Potassium 3.4 mmol/L (3.5-5.1); SGOT/AST 19 U/L (14-36); SGPT/ALT 14 U/L (0-35); SODIUM 137 mmol/L (137-145); Total Protein 7.7 g/dL (6.3-8.2)
[2022-02-19] MEDS ORDERED: Zofran 4 MG/2 ML VIAL IV ONE (19:44)
[2022-02-19] MEDS ORDERED: Zofran 4 MG/2 ML VIAL ONE (20:00)
[2022-02-19] MEDS ORDERED: TORAdol 30 mg Injection IM ONE (20:13)
[2022-02-19] MEDS ORDERED: TORAdol 30 mg Injection ONE (20:43)
[2022-02-19] MEDS ORDERED: PROTONIX 40 MG IV IV ONE ×2 (22:26→22:33)
[2022-02-20 00:59] LABS: Dipstick done @ ? MAIN LAB
[2022-02-20 01:03] LABS: Bacteria RARE /HPF (NEGATIVE); Mucus SLIGHT /HPF (NEGATIVE)
[2022-02-20 01:04] LABS: Appearance CLEAR (CLEAR); Bilirubin NEGATIVE (NEGATIVE); Glucose NEGATIVE (NEGATIVE); Ketones TRACE (NEGATIVE); Nitrite NEGATIVE (NEGATIVE); Ph 8.5 (5-6); Protein,Urine Dip 30 (Negative); RBC SMALL Ery/ul (0-5); Urobilinogen 0.2 mg/dL (0-1)
[2022-02-20 01:05] LABS: Urine Cultured Indicated? YES
[2022-02-20] MEDS ORDERED: ROCEPHIN 1 Gm-D5w 50 ml Bag** 1 G/50 ML IVPB IV STA (01:26)
[2022-02-20] MEDS ORDERED: ROCEPHIN 1 Gm-D5w 50 ml Bag** 1 G/50 ML IVPB IV ONE (01:47)
[2022-02-20 03:37] VITALS: BP 110/79; PULSE 60
[2022-02-20 03:48] VITALS: O2SAT 100
--- NOTE | 2022-02-20 08:38 | XRAY ---
Indication: Chest and abdomen pain. Nausea and vomiting. Status post left shoulder surgery. Multiple contiguous axial images obtained through the abdomen and pelvis without contrast. Comparison: February 15, 2021 Lung bases remain clear. Heart not enlarged. New small hiatal hernia. Noncontrasted stomach and bowel loops nonobstructed again with normal appendix. No free fluid/air. Again a few tiny hepatic/splenic calcified granulomas. Remaining liver, gallbladder, pancreas, spleen, adrenal glands, kidneys, ureters, bladder, uterus, and aorta are unremarkable for noncontrast exam. Osseous structures intact. No ventral or inguinal hernias. Impression: 1. New small hiatal hernia. 2. Remaining CT abdomen/pelvis without contrast exam is again negative.
--- NOTE | 2022-02-20 08:42 | XRAY ---
Indication: Chest pain and vomiting. Comparison: April 12, 2009 Portable chest again demonstrates normal heart, lungs, and bony thorax with incidental right mid lung calcified granuloma.
== END 2022-02-20 03:33 | disposition home or self-care (01) ==
LOC: ED 17:41
DX: N39.0 Urinary tract infection, site not specified (principal); K44.9 Diaphragmatic hernia without obstruction or gangrene; R11.2 Nausea with vomiting, unspecified; R07.9 Chest pain, unspecified; Z79.899 Other long term (current) drug therapy
CPT/HCPCS: 36000; 36415; 71045; 74176; 80053; 81015; 83690; 83880; 84484; 85025; 85379; 87077; 87086; 87186; 93005; 93041; 94760; 96374; 96375; 99284; J0696; J1885; J2405

== ENCOUNTER 2024-02-07 18:45 | Emergency (ER) | payer BC ==
[2024-02-07 18:58] VITALS: RESP 18; TEMP 97.7; O2SAT 100
[2024-02-07] MEDS ORDERED: Adacel Vial IM ONE (19:04)
[2024-02-07] MEDS: Adacel Vial IM ONE (19:07)
[2024-02-07] MEDS ORDERED: PERCOCET TABLET 5/325MG ONE (19:33)
[2024-02-07] MEDS: PERCOCET TABLET 5/325MG PO ONE (19:33)
--- NOTE | 2024-02-07 19:34 | ERPHSYRPT ---
- History of Present Illness Time Seen by Provider: 02/07/24 18:47 Source: patient Exam Limitations: no limitations Patient Subjective Stated Complaint: C/O laceration to left hand middle finger. Patient cut her hand just prior to coming into the ER today while cutting off corn on the cob. Triage Nursing Assessment: Patient ambulated back to ER. She is alert and oriented. Gauze wrapped around left hand. Laceration present to distal left finger going through patient's fingernail. Minimal active bleeding present. Physician History: 38 years old female updated with tetanus presented in the ER with complaint of left third digit laceration while cutting off corn on the cob prior to arrival. Patient reports distal part of the nail was broken off and has some laceration underneath and on the side of the nail fold. There was bleeding initially but stopped on presentation in the ER. No difficulty movements at distal interphalangeal joints. There is a crack in the nail but intact. Superficial laceration on the nail fold. No active spurting or oozing. Intact distal neurovascular. Intact range of motion at DIP. It is a superficial cut, I do not think patient needs stitches, applied glue and Steri-Strip on the nail fold. I have discussed with patient about removing distal part of the nail which she is not interested. There is a chance it might will survive or might will possibly fall off. She seems understanding. Recommended Tylenol ibuprofen and outpatient follow-up. Discussed signs symptoms of worsening needing return to ER which she seems understanding. Stable for discharge. Allergies/Adverse Reactions: No Known Drug Allergies Allergy (Verified 02/07/24 18:49) Home Medications: Citalopram Hydrobromide [Celexa] 10 mg PO DAILY 08/15/20 [History] Hx Tetanus, Diphtheria Vaccination/Date Given: Yes Hx Influenza Vaccination/Date Given: Yes Hx Pneumococcal Vaccination/Date Given: No Immunizations Up to Date: Yes Travel Risk - International Travel Have you traveled outside of the country in past 3 weeks: No - Emerging Infectious Disease Are you exhibiting symptoms associated with any current EIDs: No - Review of Systems Constitutional: No Symptoms Ears, Nose, & Throat: No Symptoms Respiratory: No Symptoms Cardiac: No Symptoms Musculoskeletal: Injury Skin: Skin Lesions Neurological: No Symptoms Endocrine: No Symptoms Hematologic/Lymphatic: No Symptoms - Past Medical History Pertinent Past Medical History: Yes Neurological History: No Pertinent History Cardiac History: No Pertinent History Respiratory History: No Pertinent History Endocrine Medical History: Hypothyroidism Musculoskeletal History: Fractures, Other Other Medical History: HX FX RIGHT ANKLE REQUIRING ORIF A TEENAGER. - Past Surgical History Past Surgical History: Yes Musculoskeletal: Orthopedic Surgery Female Surgical History: Section, Tubal Ligation Other Surgical History: PILONIDAL CYST - HYSTEROSCOPIC WITH MIRENA IMPLANT, right ankle, left knee, uterine ablasion, left shoulder rotator cuff repair - Female History Hx Last Menstrual Period: 2 WEEKS AGO Hx Now: No - Social History Smoking Status: Former smoker Exposure to second hand smoke: No Drug Use: none Patient Lives Alone: No - Social Determinants of Health Will the patient participate in the screening: Yes Do you worry about a steady place to live?: No Do you have any problems with any of the following?: No known problems In the past 12 months,have you had to go without utilities?: No Transportation Issues: No Has anyone in your support network made you feel unsafe?: No Have you or anyone in your house had to go without enough: No - Nursing Vital Signs Nursing Vital Signs: Initial Vital Signs Temperature 97.7 F 02/07/24 18:50 Pulse Rate 68 02/07/24 18:50 Respiratory Rate 18 02/07/24 18:50 Blood Pressure 139/82 02/07/24 18:50 O2 Sat by Pulse Oximetry 100 02/07/24 18:50 Pain Scale Pain Intensity 10 - Physical Exam General Appearance: no apparent distress Eye Exam: PERRL/EOMI Neck Exam: normal inspection, full range of motion Respiratory Exam: normal breath sounds, lungs clear Cardiovascular Exam: regular rate/rhythm, normal heart sounds Extremity Exam: lacerations, tenderness Neurologic Exam: alert, oriented x 3, cooperative Skin Exam: normal color SpO2 Interpretation: normal SpO2: 100 O2 Delivery: Room Air Procedures - Laceration/Wound Repair Left Dorsal Finger Time of Procedure: 19:34 Wound Location: Left, hand Wound Length (cm): 2 Wound's Depth, Shape: superficial, nail-avulsed Wound Explored: clean Irrigated: Yes Hibiclens Prep: Yes Wound Repaired With: Steri-strips, Dermabond Number of Sutures: 2 Sterile Dressing Applied?: Yes Splint Applied?: No Ordered Tests: Medication Summary Discontinued Medications Generic Name Dose Route Start Last Admin Trade Name Freq PRN Reason Stop Dose Admin Diphtheria/Tetanus/Acell Pertussis 0.5 ml 02/07/24 18:49 02/07/24 19:07 Tdap --Diph,Pertuss(Acell),Tet Vac/Pf 0.5 Ml Vial IM 02/07/24 18:50 0.5 ml .ONCE ONE Administration Diphtheria/Tetanus/Acell Pertussis Confirm 02/07/24 19:04 Tdap --Diph,Pertuss(Acell),Tet Vac/Pf 0.5 Ml Vial Administered 02/07/24 19:05 Dose 0.5 ml IM .[facility] - Progress Progress: improved Progress Note: 02/07/24 19:35 38 years old female updated with tetanus presented in the ER with complaint of left third digit laceration while cutting off corn on the cob prior to arrival. Patient reports distal part of the nail was broken off and has some laceration underneath and on the side of the nail fold. There was bleeding initially but stopped on presentation in the ER. No difficulty movements at distal interphalangeal joints. There is a crack in the nail but intact. Superficial laceration on the nail f old. No active spurting or oozing. Intact distal neurovascular. Intact range of motion at DIP. Given symptomatic treatment for pain. It is a superficial injury, do not think needs imaging. It is a superficial cut, I do not think patient needs stitches, applied glue and Steri-Strip on the nail fold. I have discussed with patient about removing distal part of the nail which she is not interested. There is a chance it might will survive or might will possibly fall off. She seems understanding. Recommended Tylenol ibuprofen and outpatient follow-up. Discussed signs symptoms of worsening needing return to ER which she seems understanding. Stable for discharge. Counseled pt/family regarding: diagnosis, need for follow-up Medical Desision Making - Independent Historian Additional History obtained from: Spouse - Diagnostic Testing Diagnostic test were ordered, analyzed, and reviewed by me: No - Risk of complications The pt has a mod risk of morbidity or mortality based on: Need for minor surgical intervention in patient with know risk factors - Departure Departure Disposition: Home Clinical Impression: Finger laceration Condition: Stable Critical Care Time: No Referrals: ALTHEA DAVENPORT [Primary Care Provider] - Follow up with PCP 1 day Instructions: Laceration Repair With Glue (DC) Additional Instructions: Take Tylenol/ibuprofen as needed. Follow-up with primary care for reevaluation. Return to ER for increasing pain swelling redness, discharge or if develop fever chills etc.
[2024-02-07 19:40] VITALS: BP 116/74; PULSE 80
== END 2024-02-07 19:44 | disposition home or self-care (01) ==
LOC: ED 18:45
DX: S61.313A Laceration without foreign body of left middle finger with damage to nail, initial encounter (principal); W26.0XXA Contact with knife, initial encounter; Y93.G1 Activity, food preparation and clean up; Z79.899 Other long term (current) drug therapy; Z23 Encounter for immunization
CPT/HCPCS: 12001; 90471; 90715; 99282; A9270-GY